=== PATIENT | female | born 1940 | race Caucasian/White ===

== ENCOUNTER 2017-04-15 09:05 | Emergency (ER) | payer OTHER ==
[~2017-04-15] VITALS: Ht 165.1 cm; Wt 95.2 kg
[~2017-04-15 09:05] MED LIST: AMLODIPINE BESYL5 MG PO; METFORMIN HCL1000 MG PO; PRANDIN1 MG PO; PRAVASTATIN SOD20 MG PO; ZESTORETIC 20-1 EAC1 PO
[2017-04-15 09:54] LABS: HEMATOCRIT 39.7 % (36.0-46.0); MCH 28.1 PG (29.0-34.0); MCHC 33.2 G/DL (30.0-36.0); MCV 84.5 FL (83-99); MEAN PLAT.VOLUME 10.9 uM^3 (9.5-12.4); PLATELET COUNT 320 K/uL (156-360); RBC DIS.WIDTH-CV 13.5 % (11.8-14.6); RBC DIS.WIDTH-SD 41.7 % (39-53); WHITE BLOOD COUNT 7.6 K/uL (4.1-10.2)
[2017-04-15 10:05] LABS: CHLORIDE 101 mEq/L (99-109); POTASSIUM 3.8 mEq/L (3.7-5.4); SODIUM 139 mEq/L (136-147)
[2017-04-15 10:08] LABS: GLUCOSE 250 mg/dL (70-99)
[2017-04-15 10:09] LABS: ANION GAP 17 MEQ/L (2-14); TOTAL BILIRUBIN 0.8 mg/dL (0.0-1.0)
[2017-04-15 10:11] LABS: ALKALINE PHOSPHATASE 87 IU/L (3-129); GFR ESTIMATE (CALCULATED) 36 mL/min/
[2017-04-15 10:12] LABS: UREA NITROGEN (BUN) 28 mg/dL (9-23)
[2017-04-15 10:15] LABS: LIPASE 19 U/L (1.0-51.0); TROP-I INTERPRETATION NEGATIVE; TROPONIN-I < 0.01 ng/mL (0.0-0.30)
[2017-04-15 12:21] LABS: ADD MIUA? YES; BILIRUBIN NEGATIVE; BLOOD SMALL; COLOR YELLOW ((YELLOW)); GLUCOSE (STRIP) 50; KETONES 20; LEUKOCYTES LARGE; NITRITE NEGATIVE; PROTEIN (STRIP) NEGATIVE; SPECIFIC GRAVITY 1.013 (1.000-1.030); UROBILINOGEN 0.2 MG/DL (0.2-1.0)
[2017-04-15 12:29] LABS: BACTERIA RARE /HPF; EPITHELIAL CELLS 2+ /HPF; MUCUS TRACE /LPF; UCUL ADDED? NO; WHITE BLOOD CELLS 15-20 /HPF (0-5)
[2017-04-15 13:07] LABS: CHLORIDE 107 mEq/L (99-109); POTASSIUM 3.4 mEq/L (3.7-5.4); SODIUM 141 mEq/L (136-147)
[2017-04-15 13:11] LABS: ANION GAP 12 MEQ/L (2-14)
[2017-04-15 13:13] LABS: GFR ESTIMATE (CALCULATED) 52 mL/min/; GLUCOSE 90 mg/dL (70-99)
[2017-04-15 13:14] LABS: UREA NITROGEN (BUN) 27 mg/dL (9-23)
[2017-04-15] MEDS ORDERED: KEFLEX500 MG PO (13:25)
[2017-04-15] MEDS ORDERED: ZOFRAN ODT4 MG PO (13:25)
[2017-04-15] MEDS ORDERED: BENTYL20 MG PO (13:25)
[2017-04-15 14:05] VITALS: BP 127/74
== END 2017-04-15 14:12 | disposition home or self-care (01) ==
LOC: EME 09:05
PROVIDERS: Nurse Practitioner Family
DX: N39.0 Urinary tract infection, site not specified (principal); N28.9 Disorder of kidney and ureter, unspecified; E11.65 Type 2 diabetes mellitus with hyperglycemia; R10.9 Unspecified abdominal pain; R11.2 Nausea with vomiting, unspecified; R19.7 Diarrhea, unspecified; I10 Essential (primary) hypertension; E78.5 Hyperlipidemia, unspecified; Z79.84 Long term (current) use of oral hypoglycemic drugs
CPT/HCPCS: 74176; 80048 91; 80053; 81003; 83605; 83690; 84484; 85027; 87040; 87086; 93005; 99281; 99285; J0696; J1885; J2405; J7030; J7040; J7050

== ENCOUNTER 2017-05-07 21:22 | Emergency (ER) | payer OTHER ==
[~2017-05-07] VITALS: Ht 165.1 cm; Wt 95.8 kg
[~2017-05-07 21:22] MED LIST changes: +BENTYL20 MG PO; +KEFLEX500 MG PO; +ZOFRAN ODT4 MG PO
[2017-05-07 21:52] LABS: HEMATOCRIT 38.5 % (36.0-46.0); MCH 28.2 PG (29.0-34.0); MCHC 32.5 G/DL (30.0-36.0); MCV 86.7 FL (83-99); MEAN PLAT.VOLUME 10.6 uM^3 (9.5-12.4); RBC DIS.WIDTH-CV 13.4 % (11.8-14.6); RED BLOOD COUNT 4.44 M/uL (3.80-5.20); WHITE BLOOD COUNT 14.5 K/uL (4.1-10.2)
[2017-05-07 21:57] LABS: PLATELET COUNT 474 K/uL (156-360)
[2017-05-07 21:59] LABS: CHLORIDE 102 mEq/L (99-109); POTASSIUM 4.2 mEq/L (3.7-5.4); SODIUM 136 mEq/L (136-147)
[2017-05-07 22:02] LABS: GLUCOSE 163 mg/dL (70-99)
[2017-05-07 22:03] LABS: ANION GAP 13 MEQ/L (2-14)
[2017-05-07 22:04] LABS: TOTAL BILIRUBIN 0.7 mg/dL (0.0-1.0)
[2017-05-07 22:05] LABS: ALKALINE PHOSPHATASE 83 IU/L (3-129)
[2017-05-07 22:06] LABS: GFR ESTIMATE (CALCULATED) 47 mL/min/
[2017-05-07 22:07] LABS: UREA NITROGEN (BUN) 29 mg/dL (9-23)
[2017-05-07 22:18] LABS: ADD MIUA? YES; BILIRUBIN NEGATIVE; BLOOD NEGATIVE; COLOR YELLOW ((YELLOW)); GLUCOSE (STRIP) NEGATIVE; KETONES NEGATIVE; LEUKOCYTES LARGE; NITRITE NEGATIVE; PROTEIN (STRIP) NEGATIVE; SPECIFIC GRAVITY 1.009 (1.000-1.030); UROBILINOGEN 0.2 MG/DL (0.2-1.0)
[2017-05-07 22:31] LABS: BACTERIA RARE /HPF; EPITHELIAL CELLS RARE /HPF; MUCUS TRACE /LPF; RED BLOOD CELLS 0-5 /HPF (0-5); UCUL ADDED? YES
[2017-05-08 01:37] LABS: AMYLASE 56 IU/L (1-118)
[2017-05-08] MEDS ORDERED: CARAFATE1 GM PO (01:44)
[2017-05-08] MEDS ORDERED: OMEPRAZOLE40 M1 PO (01:44)
[2017-05-08] MEDS ORDERED: TRAMADOL HCL50 MG PO (01:45)
[2017-05-08 01:46] LABS: LIPASE 49 U/L (1.0-51.0)
[2017-05-08] MEDS ORDERED: ZOFRAN4 MG PO (01:46)
[2017-05-08 02:21] VITALS: BP 135/98
[2017-05-11] MEDS ORDERED: AMLOD-VALSA-HC1 EAC1 PO (10:24)
[2017-05-11] MEDS ORDERED: NORVASC10 MG PO (10:28)
[2017-05-11] MEDS ORDERED: JANUVIA100 MG PO (10:31)
[2017-05-11] MEDS ORDERED: ASPIR 8181 M1 PO (10:33)
== END 2017-05-08 02:24 | disposition home or self-care (01) ==
LOC: EME 21:22
PROVIDERS: Physician Assistant
DX: K29.70 Gastritis, unspecified, without bleeding (principal); R30.0 Dysuria; E11.9 Type 2 diabetes mellitus without complications; Z79.84 Long term (current) use of oral hypoglycemic drugs; Z87.440 Personal history of urinary (tract) infections; Z79.2 Long term (current) use of antibiotics; I10 Essential (primary) hypertension; E78.5 Hyperlipidemia, unspecified; Z86.73 Personal history of transient ischemic attack (TIA), and cerebral infarction without residual deficits; Z88.1 Allergy status to other antibiotic agents; Z88.0 Allergy status to penicillin; Z91.041 Radiographic dye allergy status
CPT/HCPCS: 74174; 80053; 81003; 82150; 83605; 83690; 85027; 87040; 87086; 99281; 99284; J1200; J2405; J2930; J3010; J7030

== ENCOUNTER → 2017-05-11 | Outpatient (CLI) | payer OTHER ==
[~2017-05-11] VITALS: Ht 160 cm; Wt 93.4 kg
[~2017-05-11] MED LIST changes: +AMLOD-VALSA-HC1 EAC1 PO; +ASPIR 8181 M1 PO; +CARAFATE1 GM PO; +JANUVIA100 MG PO; +NORVASC10 MG PO; +OMEPRAZOLE40 M1 PO; +TRAMADOL HCL50 MG PO; +ZOFRAN4 MG PO
[2017-05-11 10:43] LABS: POINT-OF-CARE METER ID UU14107333
[2017-05-11 11:28] LABS: HEMATOCRIT 34.7 % (36.0-46.0)
== END | disposition home or self-care (01) ==
LOC: AMB 09:41
PROVIDERS: Internal Medicine
DX: K26.9 Duodenal ulcer, unspecified as acute or chronic, without hemorrhage or perforation (principal); K29.80 Duodenitis without bleeding; B96.81 Helicobacter pylori [H. pylori] as the cause of diseases classified elsewhere; K25.9 Gastric ulcer, unspecified as acute or chronic, without hemorrhage or perforation; Z79.82 Long term (current) use of aspirin; Z79.84 Long term (current) use of oral hypoglycemic drugs; Z90.49 Acquired absence of other specified parts of digestive tract; I10 Essential (primary) hypertension; R31.29 Other microscopic hematuria; E11.9 Type 2 diabetes mellitus without complications; Z86.73 Personal history of transient ischemic attack (TIA), and cerebral infarction without residual deficits; E66.9 Obesity, unspecified; Z68.36 Body mass index [BMI] 36.0-36.9, adult; Z82.49 Family history of ischemic heart disease and other diseases of the circulatory system; Z83.3 Family history of diabetes mellitus
CPT/HCPCS: 82948; 85014; 85018; 88305; 88342 TC; J3010

== ENCOUNTER → 2017-08-13 | Outpatient (CLI) | payer OTHER ==
[~2017-08-13] VITALS: Ht 165.1 cm; Wt 91.6 kg
[~2017-08-13] MED LIST changes: +ALLEGRA ALLERG180 MG PO; +AMOXICILLIN500 M1 PO; +BIAXIN500 MG PO; +TYLENOL ARTHRI650 MG PO
[2017-08-13 08:58] LABS: POINT-OF-CARE METER ID UU14107333
[2017-08-13 09:13] LABS: HEMATOCRIT 39.2 % (36.0-46.0); MCH 28.1 PG (29.0-34.0); MCHC 32.7 G/DL (30.0-36.0); MCV 86.2 FL (83-99); PLATELET COUNT 426 K/uL (156-360); RBC DIS.WIDTH-CV 13.5 % (11.8-14.6); RED BLOOD COUNT 4.55 M/uL (3.80-5.20); WHITE BLOOD COUNT 12.7 K/uL (4.1-10.2)
== END | disposition home or self-care (01) ==
LOC: AMB 07-16 09:00
PROVIDERS: Anesthesiology; Internal Medicine
PROC: 0DB68ZX Excision of Stomach, Via Natural or Artificial Opening Endoscopic, Diagnostic (ICD-10-PCS; principal; 2017-08-13)
DX: K29.70 Gastritis, unspecified, without bleeding (principal); I10 Essential (primary) hypertension; E11.9 Type 2 diabetes mellitus without complications; K21.9 Gastro-esophageal reflux disease without esophagitis; Z79.82 Long term (current) use of aspirin; Z79.84 Long term (current) use of oral hypoglycemic drugs; E78.00 Pure hypercholesterolemia, unspecified; E66.9 Obesity, unspecified; Z68.33 Body mass index [BMI] 33.0-33.9, adult
CPT/HCPCS: 82948; 85027; 88305; 88342 TC; 93005; J2250; J3010

== ENCOUNTER 2018-03-15 10:53 | Day surgery (SDC) | payer OTHER ==
[~2018-03-15] VITALS: Ht 163.8 cm; Wt 93.0 kg
[2018-03-15 11:48] VITALS: BP 140/64
[2018-03-15 16:12] VITALS: BP 136/65
[2018-03-15 17:55] LABS: HEMATOCRIT 35.3 % (36.0-46.0); HEMOGLOBIN 11.7 G/DL (11.9-15.5); MCH 28.4 PG (29.0-34.0); MCHC 33.1 G/DL (30.0-36.0); MCV 85.7 FL (83-99); PLATELET COUNT 333 K/uL (156-360); RBC DIS.WIDTH-CV 13.3 % (11.8-14.6); RBC DIS.WIDTH-SD 41.7 % (39-53); RED BLOOD COUNT 4.12 M/uL (3.80-5.20); WHITE BLOOD COUNT 13.9 K/uL (4.1-10.2)
[2018-03-15 18:11] LABS: CHLORIDE 101 MEQ/L (99-109); CREATININE 0.9 MG/DL (0.6-1.3); GFR ESTIMATE (CALCULATED) > 59 mL/min/; GLUCOSE 225 mg/dL (70-99); POTASSIUM 3.8 MEQ/L (3.7-5.4); SODIUM 136 MEQ/L (136-147); UREA NITROGEN (BUN) 23 mg/dL (9-23)
[2018-03-15 19:32] VITALS: BP 152/67
[2018-03-15 23:30] VITALS: BP 131/75
[2018-03-16 03:19] VITALS: BP 150/71
[2018-03-16 06:45] VITALS: BP 156/71
[2018-03-16 07:05] LABS: HEMATOCRIT 36.4 % (36.0-46.0); HEMOGLOBIN 11.9 G/DL (11.9-15.5); MCH 27.9 PG (29.0-34.0); MCHC 32.7 G/DL (30.0-36.0); MCV 85.2 FL (83-99); PLATELET COUNT 364 K/uL (156-360); RBC DIS.WIDTH-CV 13.3 % (11.8-14.6); RBC DIS.WIDTH-SD 41.4 % (39-53); RED BLOOD COUNT 4.27 M/uL (3.80-5.20); WHITE BLOOD COUNT 10.8 K/uL (4.1-10.2)
[2018-03-16 07:31] LABS: CHLORIDE 100 MEQ/L (99-109); GFR ESTIMATE (CALCULATED) 57 mL/min/; GLUCOSE 168 mg/dL (70-99); POTASSIUM 4.2 MEQ/L (3.7-5.4); SODIUM 138 MEQ/L (136-147); UREA NITROGEN (BUN) 14 mg/dL (9-23)
[2018-03-16] MEDS ORDERED: TRAMADOL HCL50 MG PO (09:33)
== END 2018-03-16 11:45 | disposition home or self-care (01) ==
LOC: SDC 10:53 → 2SOUTH 14:37 → ENRESERV 14:52 → 2EAST 15:43
PROVIDERS: Obstetrics & Gynecology Gynecologic Oncology
PROC: 0UT97ZZ Resection of Uterus, Via Natural or Artificial Opening (ICD-10-PCS; principal; 2018-03-15)
PROC: 8E0UXY7 Examination of Female Reproductive System (ICD-10-PCS; principal; 2018-03-15)
PROC: 0UTC7ZZ Resection of Cervix, Via Natural or Artificial Opening (ICD-10-PCS; principal; 2018-03-15)
PROC: 0JQC0ZZ Repair Pelvic Region Subcutaneous Tissue and Fascia, Open Approach (ICD-10-PCS; principal; 2018-03-15)
PROC: 0TQD7ZZ Repair Urethra, Via Natural or Artificial Opening (ICD-10-PCS; principal; 2018-03-15)
DX: N81.3 Complete uterovaginal prolapse (principal); I25.10 Atherosclerotic heart disease of native coronary artery without angina pectoris; I10 Essential (primary) hypertension; E78.5 Hyperlipidemia, unspecified; E11.9 Type 2 diabetes mellitus without complications; Z79.84 Long term (current) use of oral hypoglycemic drugs; M19.90 Unspecified osteoarthritis, unspecified site; Z86.73 Personal history of transient ischemic attack (TIA), and cerebral infarction without residual deficits; Z79.82 Long term (current) use of aspirin; Z79.818 Long term (current) use of other agents affecting estrogen receptors and estrogen levels; Z88.5 Allergy status to narcotic agent; Z88.8 Allergy status to other drugs, medicaments and biological substances; Z91.041 Radiographic dye allergy status
CPT/HCPCS: 80048; 82948; 85027; 88302; 88305; G0378; J0131; J0171; J0690; J1100; J1170; J1815; J2405; J2765; J3010; J7120